=== PATIENT | male | born 1965 | race Two or more races ===

== ENCOUNTER 2019-01-24 17:21 | Emergency (ER) | payer MEDICAID ==
[~2019-01-24] VITALS: Ht 177.8 cm; Wt 116.0 kg
[2019-01-24 18:00] LABS: BASOPHILS # (AUTO) 0.1 X10'3 (0-0.2); BASOPHILS % (AUTO) 1.3 % (0-1); EOSINOPHILS # (AUTO) 0.5 X10'3 (0-0.9); EOSINOPHILS % (AUTO) 7.6 % (0-6); HEMATOCRIT 38.5 % (42.0-52.0); HEMOGLOBIN 13.4 g/dl (14.0-17.9); LYMPHOCYTES # (AUTO) 2.3 X10'3 (1.1-4.8); LYMPHOCYTES % (AUTO) 36.8 % (21-51); MEAN CORPUSCULAR HEMOGLOBIN 32.2 PG (27.0-31.0); MEAN CORPUSCULAR HGB CONC 34.8 g/dL (33.0-36.5); MEAN CORPUSCULAR VOLUME 92.7 FL (78-98); MEAN PLATELET VOLUME 7.7 FL (7.4-10.4); MONOCYTES # (AUTO) 0.6 X10'3 (0-0.9); MONOCYTES % (AUTO) 9.1 % (2-12); NEUTROPHILS # (AUTO) 2.8 X10'3 (1.8-7.7); NEUTROPHILS % (AUTO) 45.2 % (42-75); PLATELET COUNT 248 X10'3 (140-440); RED BLOOD COUNT 4.16 X10'6 (4.70-6.10); RED CELL DISTRIBUTION WIDTH 12.9 % (11.5-14.5); WHITE BLOOD COUNT 6.2 X10'3 (4.5-11.0)
[2019-01-24 18:11] LABS: ALANINE AMINOTRANSFERASE 30 U/L (12-78); ALBUMIN 3.7 G/DL (3.4-5.0); ALBUMIN/GLOBULIN RATIO 1.1 (1.1-1.5); ALKALINE PHOSPHATASE 94 IU/L (46-116); ANION GAP 6 (8-16); ASPARTATE AMINO TRANSFERASE 20 U/L (10-37); BILIRUBIN,TOTAL 0.3 MG/DL (0.1-1.0); BLOOD UREA NITROGEN 18 MG/DL (7-18); BUN/CREATININE RATIO 19.6 (5.4-32.0); CALCIUM 8.6 MG/DL (8.5-10.1); CHLORIDE 107 MMOL/L (99-107); CREATININE 0.92 MG/DL (0.60-1.10); GLUCOSE 108 MG/DL (70-104); POTASSIUM 4.1 MMOL/L (3.5-5.1); SODIUM 140 MMOL/L (135-145); TOTAL CARBON DIOXIDE 26.8 MMOL/L (24-32); TOTAL PROTEIN 7.2 G/DL (6.4-8.2); eGFR 85 ML/MIN
--- NOTE | 2019-01-24 18:11 | NUR ---
Pt ambulatory to the restroom to attempt to provide a urine specimen.
[2019-01-24 18:27] LABS: CLARITY,URINE CLEAR (Clear); COLOR,URINE YELLOW (Yellow); GLUCOSE, URINE NEGATIVE (Neg); KETONES,URINE NEGATIVE (Neg); LEUKOCYTE ESTERASE ,URINE NEGATIVE (Neg); NITRITES, URINE NEGATIVE (Neg); OCCULT BLOOD,URINE NEGATIVE (Neg); PROTEIN,URINE NEGATIVE (Neg); UROBILINOGEN,URINE 0.2 E.U/dL (0.2-1.0)
[2019-01-24 18:28] LABS: UA COLLECTION TYPE CLN CATCH MIDSTREAM
[2019-01-24 19:23] VITALS: BP 139/92
[2019-01-28] MEDS ORDERED: NO HOME MEDS (15:51)
== END 2019-01-24 19:26 | disposition home or self-care (01) ==
LOC: ER 17:21
DX: K40.90 Unilateral inguinal hernia, without obstruction or gangrene, not specified as recurrent (principal); Z98.890 Other specified postprocedural states
CPT/HCPCS: 36415; 80053; 81003; 85025; 85610; 99283

== ENCOUNTER 2019-01-29 07:02 | Day surgery (SDC) | payer MEDICAID ==
[2019-01-28 17:03] LABS: BASOPHILS # (AUTO) 0.1 X10'3 (0-0.2); BASOPHILS % (AUTO) 1.2 % (0-1); EOSINOPHILS # (AUTO) 0.4 X10'3 (0-0.9); EOSINOPHILS % (AUTO) 5.3 % (0-6); LYMPHOCYTES # (AUTO) 2.1 X10'3 (1.1-4.8); LYMPHOCYTES % (AUTO) 30.9 % (21-51); MEAN CORPUSCULAR HEMOGLOBIN 32.2 PG (27.0-31.0); MEAN CORPUSCULAR HGB CONC 34.2 g/dL (33.0-36.5); MEAN CORPUSCULAR VOLUME 94.1 FL (78-98); MEAN PLATELET VOLUME 8.2 FL (7.4-10.4); MONOCYTES # (AUTO) 0.6 X10'3 (0-0.9); MONOCYTES % (AUTO) 8.4 % (2-12); NEUTROPHILS # (AUTO) 3.7 X10'3 (1.8-7.7); NEUTROPHILS % (AUTO) 54.2 % (42-75); PRE OP HEMATOCRIT 40.9 % (42.0-52.0); PRE OP PLATELET COUNT 259 X10'3 (140-440); RED BLOOD COUNT 4.35 X10'6 (4.70-6.10)
[2019-01-28 17:25] LABS: ALBUMIN 3.8 G/DL (3.4-5.0); ALBUMIN/GLOBULIN RATIO 1.1 (1.1-1.5); ALKALINE PHOSPHATASE 96 IU/L (46-116); BLOOD UREA NITROGEN 23 MG/DL (7-18); BUN/CREATININE RATIO 22.8 (5.4-32.0); CALCIUM 9.1 MG/DL (8.5-10.1); CHLORIDE 108 MMOL/L (99-107); CREATININE 1.01 MG/DL (0.60-1.10); PRE OP ALT 39 U/L (30-65); PRE OP ANION GAP 11 (8-16); PRE OP AST 31 U/L (10-37); PRE OP BILIRUB, TOTAL 0.3 MG/DL (0.0-1.0); PRE OP GLUCOSE 110 MG/DL (70-104); PRE OP POTASSIUM 4.2 MMOL/L (3.4-5.1); PRE OP SODIUM 144 MMOL/L (135-145); TOTAL CARBON DIOXIDE 25.4 MMOL/L (24-32); TOTAL PROTEIN 7.4 G/DL (6.4-8.2); eGFR 77 ML/MIN
[~2019-01-29] VITALS: Ht 177.8 cm; Wt 116.1 kg
[2019-01-29] VITALS (10 sets, daily range): BP systolic 143–156; BP diastolic 81–97
[~2019-01-29 07:02] MED LIST: BUPIVAcaine/PF 2.5 mg/ml (0.25%) 30ml vial ONE; LIDOcaine 1% 30ml preserv. free vial ONE; NO HOME MEDS
[2019-01-29] MEDS ORDERED: ringers solution, lacted 1,000 ML IV SCH ×2 (07:05→08:00)
[2019-01-29] MEDS ORDERED: famotidine 20mg tablet PO ONE (07:05)
[2019-01-29] MEDS ORDERED: cefazolin/dext.iso 2gm/50ml 50 ML IV ONE (07:05)
[2019-01-29] MEDS ORDERED: sevoflurane 250ml liquid IH ONE (07:25)
[2019-01-29] MEDS ORDERED: fentaNYL /PF 50mcg/ml 5ml ampule ONE (07:34)
[2019-01-29] MEDS ORDERED: midazolam 2 mg/2 ml injection ONE (07:34)
[2019-01-29] MEDS ORDERED: rocuronium 10mg/ml inj IV ONE ×2 (07:39→07:48)
[2019-01-29] MEDS ORDERED: LIDOcaine 2% (20mg/ml) 5ml vial ONE (07:48)
[2019-01-29] MEDS ORDERED: propofol inj 20 ML IV ONE (07:49)
[2019-01-29] MEDS ORDERED: meperidine/PF 25mg/ml syringe IV PRN ×3 (08:00)
[2019-01-29] MEDS ORDERED: ondansetron/PF 4mg/2ml inj IV PRN (08:00)
[2019-01-29] MEDS ORDERED: morphine 4 MG/ML inj SYRINge IV PRN ×2 (08:00)
[2019-01-29] MEDS ORDERED: proCHLORperazine 10 MG/2 ml inj IV PRN (08:00)
[2019-01-29] MEDS ORDERED: ketorolac trometh. 30mg/ml inj. ONE (08:56)
[2019-01-29] MEDS ORDERED: ondansetron/PF 4mg/2ml inj ONE (08:56)
[2019-01-29] MEDS ORDERED: dexamethasone sod phosphate 4mg/ml inj. ONE (08:56)
--- NOTE | 2019-01-29 09:10 | NUR ---
Received from OR via BED , accompanied by Anesthesiologist DR GROSS and report given by Anesthesiolgist. PATIENT WAKING UP, DENIES PAIN, V/S WNL, NEUROVASCULAR CHECKS INTACT, 20G PIV LUE, SCD ON, 3 BANDAIDS TO LAP SIGHTS OF ABDOMEN CDI.
--- NOTE | 2019-01-29 10:30 | NUR ---
PATIENT A&OX4, DENIES PAIN, V/S WNL, NEUROVASCULAR CHECKS INTACT, 20G PIV LUE D/C, SCD OFF, 4 BANDAIDS TO LAP SIGHTS OF ABDOMEN CDI.. I HAVE REVIEWED D/C INSTRUCTIONS WITH PATIENT AND FAMILY HAVE VERBALIZED UNDERSTANDING.PATIENT WAS D/C HOME WITH ALL BELONGINGS AND FAMILY GAVE TRANSPORT HOME.
== END 2019-01-29 10:30 | disposition home or self-care (01) ==
LOC: PAS 07:02
PROVIDERS: ATTEND Surgery
DX: K40.30 Unilateral inguinal hernia, with obstruction, without gangrene, not specified as recurrent (principal); I10 Essential (primary) hypertension; E66.9 Obesity, unspecified; Z68.36 Body mass index [BMI] 36.0-36.9, adult; Z79.899 Other long term (current) drug therapy
CPT/HCPCS: 36415; 49650; 80053; 82948; 85025; 93005; C1781; J1100; J1885; J2001; J2250; J2405; J2704; J3010; J3490; J7120; S2900; A4215; A4618

== ENCOUNTER 2019-06-20 08:09 | Day surgery (SDC) | payer MEDICAID ==
[2019-06-20] VITALS (13 sets, daily range): BP systolic 128–170; BP diastolic 76–115
[~2019-06-20] VITALS: Ht 177.8 cm; Wt 118.0 kg
[~2019-06-20 08:09] MED LIST changes: -BUPIVAcaine/PF 2.5 mg/ml (0.25%) 30ml vial ONE; -LIDOcaine 1% 30ml preserv. free vial ONE; +cefazolin/dext.iso 2gm/50ml 50 ML IV ONE; +famotidine 20mg tablet PO ONE; +ringers solution, lacted 1,000 ML IV SCH
[2019-06-20] MEDS ORDERED: proCHLORperazine 10 MG/2 ml inj IV PRN (08:10)
[2019-06-20] MEDS ORDERED: meperidine/PF 25mg/ml syringe IV PRN ×3 (08:10)
[2019-06-20] MEDS ORDERED: morphine 4 MG/ML inj SYRINge IV PRN (08:10)
[2019-06-20] MEDS ORDERED: ondansetron/PF 4mg/2ml inj IV PRN (08:10)
[2019-06-20] MEDS ORDERED: morphine 2 MG/ML inj. syringe IV PRN (08:10)
[2019-06-20 09:30] LABS: BASOPHILS # (AUTO) 0.1 X10'3 (0-0.2); BASOPHILS % (AUTO) 1.1 % (0-1); EOSINOPHILS # (AUTO) 0.3 X10'3 (0-0.9); EOSINOPHILS % (AUTO) 5.3 % (0-6); LYMPHOCYTES # (AUTO) 1.8 X10'3 (1.1-4.8); LYMPHOCYTES % (AUTO) 29.7 % (21-51); MEAN CORPUSCULAR HEMOGLOBIN 31.2 PG (27.0-31.0); MEAN CORPUSCULAR VOLUME 91.8 FL (78-98); MEAN PLATELET VOLUME 8.3 FL (7.4-10.4); MONOCYTES # (AUTO) 0.6 X10'3 (0-0.9); MONOCYTES % (AUTO) 9.7 % (2-12); NEUTROPHILS # (AUTO) 3.4 X10'3 (1.8-7.7); NEUTROPHILS % (AUTO) 54.2 % (42-75); PRE OP HEMATOCRIT 41.3 % (42.0-52.0); PRE OP PLATELET COUNT 217 X10'3 (140-440); RED CELL DISTRIBUTION WIDTH 12.7 % (11.5-14.5)
[2019-06-20 09:37] LABS: ALBUMIN 3.8 G/DL (3.4-5.0); ALBUMIN/GLOBULIN RATIO 1.2 (1.1-1.5); ALKALINE PHOSPHATASE 98 IU/L (46-116); BLOOD UREA NITROGEN 13 MG/DL (7-18); BUN/CREATININE RATIO 13.7 (5.4-32.0); CALCIUM 8.4 MG/DL (8.5-10.1); CHLORIDE 106 MMOL/L (99-107); CREATININE 0.95 MG/DL (0.60-1.10); PRE OP ALT 32 U/L (30-65); PRE OP ANION GAP 5 (8-16); PRE OP AST 20 U/L (10-37); PRE OP BILIRUB, TOTAL 0.4 MG/DL (0.0-1.0); PRE OP GLUCOSE 98 MG/DL (70-104); PRE OP POTASSIUM 4.7 MMOL/L (3.4-5.1); PRE OP SODIUM 139 MMOL/L (135-145); TOTAL CARBON DIOXIDE 27.8 MMOL/L (24-32); eGFR 82 ML/MIN
[2019-06-20] MEDS ORDERED: LIDOcaine 1% 30ml preserv. free vial ONE (10:33)
[2019-06-20] MEDS ORDERED: BUPIVAcaine/PF 2.5 mg/ml (0.25%) 30ml vial ONE (10:33)
[2019-06-20] MEDS ORDERED: fentaNYL /PF 50mcg/ml 5ml ampule ONE (10:47)
[2019-06-20] MEDS ORDERED: propofol inj 20 ML IV ONE (10:47)
[2019-06-20] MEDS ORDERED: midazolam 2 mg/2 ml injection ONE (10:47)
[2019-06-20] MEDS ORDERED: LIDOcaine 2% (20mg/ml) 5ml vial ONE (10:47)
[2019-06-20] MEDS ORDERED: sevoflurane 250ml liquid IH ONE (11:15)
[2019-06-20] MEDS ORDERED: acetaminophen 1000 MG/100ml vial IV ONE (11:15)
[2019-06-20] MEDS ORDERED: rocuronium 10mg/ml inj IV ONE (11:21)
[2019-06-20] MEDS ORDERED: ondansetron/PF 4mg/2ml inj ONE (11:31)
[2019-06-20] MEDS ORDERED: dexamethasone sod phosphate 4mg/ml inj. ONE (11:31)
--- NOTE | 2019-06-20 13:38 | NUR ---
Received from OR via [facility] , accompanied by Anesthesiologist DR SHAY and report given by Anesthesiolgist. VVS. ORAL AIRWAY PRESENT. RESP EVEN AND UNLABORED. BANDAIDS TO ABD CDI. ABD SORT AND NONTENDER. IV PATENT #20 LEFT WRIST WITH LR AT 100MLS. Addendum: 06/20/19 at 1348 by Lindsey Saldana RN Amended: Links added.
--- NOTE | 2019-06-20 13:50 | NUR ---
PT AWAKENING, ABLE TO LIFT HEAD OFF OF GURNEY. ORAL AIRWAY REMOVED. VSS
[2019-06-20] MEDS ORDERED: oxyCODONE/APAP 5-325mg tablet PO PRN ×2 (14:20)
--- NOTE | 2019-06-20 14:28 | NUR ---
HYPERTENSIVE. SEE VS SPREADSHEET. SPOKE WITH DR SHAY - ANTIHYPERTENSIVE ORDERED. SEE EMR.
[2019-06-20] MEDS: enalaprilat dihydrate 2.5mg/2ml vial IV SCH ×2 (14:45→14:59)
--- NOTE | 2019-06-20 15:38 | NUR ---
PATIENT A&OX4, DENIES PAIN, VSS-BP AT PRE-OP LEVEL, CSM INTACT, 20G PIV TO LUE D/C WITH CANNULA INTACT, BANDAIDS TO ABDOMEN CDI. VOIDE WITHOUT DIFFICULTY. REVIEWED D/C INSTRUCTIONS WITH PATIENT AND WHO VERBALIZE UNDERSTANDING. TRANSPORT VIA WC TO [facility] WITH WAITING. Addendum: 06/20/19 at 1552 by Lindsey Saldana RN Amended: Links added.
== END 2019-06-20 15:38 | disposition home or self-care (01) ==
LOC: PAS 08:09
PROVIDERS: ATTEND Surgery
DX: K40.91 Unilateral inguinal hernia, without obstruction or gangrene, recurrent (principal); I10 Essential (primary) hypertension; E66.9 Obesity, unspecified; Z68.37 Body mass index [BMI] 37.0-37.9, adult; Z98.890 Other specified postprocedural states; Z79.899 Other long term (current) drug therapy
CPT/HCPCS: 36415; 49651; 80053; 82948; 85025; C1781; J0131; J1100; J2001; J2250; J2405; J2704; J3010; J3490; J7120; S2900; A4215; A4618

== ENCOUNTER 2021-12-10 16:12 | Emergency (ER) | payer MEDICAID ==
[~2021-12-10 16:12] MED LIST changes: -cefazolin/dext.iso 2gm/50ml 50 ML IV ONE; -famotidine 20mg tablet PO ONE; -ringers solution, lacted 1,000 ML IV SCH
[2021-12-11] MEDS ORDERED: MELO-102 PO (15:33)
[2021-12-11] MEDS ORDERED: OXYC-658 PO (15:33)
[2021-12-12] MEDS ORDERED: OXYC-658 PO (14:38)
[2021-12-12] MEDS ORDERED: MELO-102 PO (14:38)
== END 2021-12-10 18:41 | disposition left against medical advice (07) ==
LOC: ER 16:13
DX: M54.2 Cervicalgia (principal); Z53.21 Procedure and treatment not carried out due to patient leaving prior to being seen by health care provider

== ENCOUNTER 2021-12-11 10:47 | Emergency (ER) | payer MEDICAID ==
[~2021-12-11] VITALS: Ht 177.8 cm; Wt 11.8 kg
[2021-12-11 11:19] VITALS: BP 146/90
[2021-12-11] MEDS ORDERED: oxyCODONE IR 5mg (immed. release) tablet PO ONE (13:00)
[2021-12-11] MEDS ORDERED: ketorolac trometh. 30mg/ml inj. IM ONE (13:00)
[2021-12-11] MEDS ORDERED: OXYC-658 PO (15:33)
[2021-12-11] MEDS ORDERED: MELO-102 PO (15:33)
[2021-12-12] MEDS ORDERED: MELO-102 PO (14:38)
[2021-12-12] MEDS ORDERED: OXYC-658 PO (14:38)
== END 2021-12-11 16:14 | disposition home or self-care (01) ==
LOC: ER 10:47
DX: G89.29 Other chronic pain (principal); M54.9 Dorsalgia, unspecified; Z79.899 Other long term (current) drug therapy
CPT/HCPCS: 72100; 73521; 96372; 99284; J1885

== ENCOUNTER 2023-04-19 15:40 | Emergency (ER) | payer MEDICAID ==
[~2023-04-19] VITALS: Ht 175.3 cm; Wt 118.2 kg
[~2023-04-19 15:40] MED LIST changes: +MELO-102 PO; +OXYC-658 PO
[2023-04-19 15:51] VITALS: BP 210/123; PULSE 64; RESP 18; TEMP 97.8; O2SAT 98
[2023-04-19] MEDS ORDERED: OXYC-145 PO (16:51)
[2023-04-19] MEDS ORDERED: IBUP-1984 PO (16:51)
== END 2023-04-19 17:35 | disposition home or self-care (01) ==
LOC: ER 15:40
DX: S93.492A Sprain of other ligament of left ankle, initial encounter (principal); X58.XXXA Exposure to other specified factors, initial encounter; Y93.89 Activity, other specified; Y92.89 Other specified places as the place of occurrence of the external cause; Y99.8 Other external cause status
CPT/HCPCS: 73610; 73630; 99284; L4360

== ENCOUNTER 2023-05-10 05:51 | Emergency (ER) | payer MEDICAID ==
[~2023-05-10] VITALS: Ht 175.3 cm; Wt 100.0 kg
[~2023-05-10 05:51] MED LIST changes: +OXYC-145 PO
[2023-05-10 05:57] VITALS: TEMP 98.3
[2023-05-10] MEDS ORDERED: ipratropium/albuterol 3ml nebule NEB ONE (06:15)
[2023-05-10 06:45] VITALS: PULSE 63; RESP 16; O2SAT 95
[2023-05-10 06:50] VITALS: PULSE 68; O2SAT 96
[2023-05-10 07:20] LABS: BASOPHILS # (AUTO) 0.1 X10'3 (0-0.2); BASOPHILS % (AUTO) 1.3 % (0-1); EOSINOPHILS # (AUTO) 0.4 X10'3 (0-0.9); EOSINOPHILS % (AUTO) 4.5 % (0-6); HEMATOCRIT 40.2 % (42.0-52.0); HEMOGLOBIN 13.8 g/dl (14.0-17.9); LYMPHOCYTES # (AUTO) 1.8 X10'3 (1.1-4.8); LYMPHOCYTES % (AUTO) 22.7 % (21-51); MEAN CORPUSCULAR HEMOGLOBIN 32.2 PG (27.0-31.0); MEAN CORPUSCULAR HGB CONC 34.4 g/dL (33.0-36.5); MEAN CORPUSCULAR VOLUME 93.8 FL (78-98); MEAN PLATELET VOLUME 8.5 FL (7.4-10.4); MONOCYTES # (AUTO) 0.7 X10'3 (0-0.9); MONOCYTES % (AUTO) 9.1 % (2-12); NEUTROPHILS # (AUTO) 5.1 X10'3 (1.8-7.7); NEUTROPHILS % (AUTO) 62.4 % (42-75); PLATELET COUNT 237 X10'3 (140-440); RED BLOOD COUNT 4.29 X10'6 (4.70-6.10); RED CELL DISTRIBUTION WIDTH 12.6 % (11.5-14.5); WHITE BLOOD COUNT 8.1 X10'3 (4.5-11.0)
[2023-05-10 07:26] LABS: ALANINE AMINOTRANSFERASE 32 U/L (12-78); ALBUMIN 3.8 G/DL (3.4-5.0); ALBUMIN/GLOBULIN RATIO 1.1 (1.1-1.5); ALKALINE PHOSPHATASE 107 IU/L (46-116); ANION GAP 10 (8-16); ASPARTATE AMINO TRANSFERASE 21 U/L (10-37); BILIRUBIN,TOTAL 0.3 MG/DL (0.1-1.0); BLOOD UREA NITROGEN 13 MG/DL (7-18); CALCIUM 9.2 MG/DL (8.5-10.1); CHLORIDE 101 MMOL/L (99-107); CREATININE 0.93 MG/DL (0.60-1.10); GLUCOSE 143 MG/DL (70-104); POTASSIUM 4.5 MMOL/L (3.5-5.1); SODIUM 136 MMOL/L (135-145); TOTAL CARBON DIOXIDE 25.1 MMOL/L (24-32); TOTAL PROTEIN 7.2 G/DL (6.4-8.2); eCRCL 86 ML/MIN; eGFR 83 ML/MIN
[2023-05-10 07:34] LABS: PRO BRAIN NATRIURETIC PEPTIDE 155 PG/ML (0-125)
[2023-05-10] MEDS ORDERED: azithromycin 250mg tablet PO SCH (08:00)
[2023-05-10] MEDS ORDERED: magnesium 2GM in 50ml NS 50 ML IV ONE (08:40)
[2023-05-10] MEDS ORDERED: dexamethasone sod phosphate 10mg/ml inj IV STA (08:40)
[2023-05-10] MEDS ORDERED: albuterol 2.5 MG/3 ML nebule CONTNEB PRN (08:45)
[2023-05-10 09:28] VITALS: PULSE 61; RESP 16; O2SAT 96
[2023-05-10 10:29] VITALS: PULSE 82; RESP 20; O2SAT 94
[2023-05-10] MEDS ORDERED: ALBU6.7H14 INH (11:06)
[2023-05-10] MEDS ORDERED: DEC4T PO (11:08)
[2023-05-10] MEDS ORDERED: AZIT-103 PO (11:09)
[2023-05-10] MEDS ORDERED: dexamethasone 4mg tablet PO SCH (11:12)
[2023-05-10 11:30] VITALS: BP 147/78; PULSE 79; RESP 18; O2SAT 94
[2023-05-10] MEDS ORDERED: albuterol 2.5 MG/3 ML nebule NEB SCH (12:00)
== END 2023-05-10 11:34 | disposition home or self-care (01) ==
LOC: ER 05:52
DX: J45.909 Unspecified asthma, uncomplicated (principal); F17.200 Nicotine dependence, unspecified, uncomplicated
CPT/HCPCS: 36415; 71045; 80053; 83880; 84484; 85025; 93005; 94640; 94644; 96365; 96375; 99285; J1100; J3475; 94760; A7015

== ENCOUNTER 2023-05-10 22:08 | Emergency (ER) | payer MEDICAID ==
[~2023-05-10] VITALS: Ht 175.3 cm; Wt 175.0 kg
[~2023-05-10 22:08] MED LIST changes: +ALBU6.7H14 INH; +AZIT-103 PO; +DEC4T PO
[2023-05-10 22:30] LABS: BASOPHILS # (AUTO) 0.1 X10'3 (0-0.2); BASOPHILS % (AUTO) 0.6 % (0-1); EOSINOPHILS % (AUTO) 0 % (0-6); HEMATOCRIT 41.3 % (42.0-52.0); LYMPHOCYTES # (AUTO) 0.9 X10'3 (1.1-4.8); LYMPHOCYTES % (AUTO) 10.4 % (21-51); MEAN CORPUSCULAR HEMOGLOBIN 31.9 PG (27.0-31.0); MEAN CORPUSCULAR HGB CONC 33.9 g/dL (33.0-36.5); MEAN CORPUSCULAR VOLUME 94.3 FL (78-98); MONOCYTES # (AUTO) 0.2 X10'3 (0-0.9); MONOCYTES % (AUTO) 2.2 % (2-12); NEUTROPHILS # (AUTO) 7.7 X10'3 (1.8-7.7); NEUTROPHILS % (AUTO) 86.8 % (42-75); PLATELET COUNT 252 X10'3 (140-440); RED BLOOD COUNT 4.38 X10'6 (4.70-6.10); RED CELL DISTRIBUTION WIDTH 12.9 % (11.5-14.5); WHITE BLOOD COUNT 8.9 X10'3 (4.5-11.0)
[2023-05-10 22:52] LABS: ALANINE AMINOTRANSFERASE 33 U/L (12-78); ALBUMIN/GLOBULIN RATIO 1.1 (1.1-1.5); ALKALINE PHOSPHATASE 109 IU/L (46-116); ANION GAP 14 (8-16); ASPARTATE AMINO TRANSFERASE 14 U/L (10-37); BILIRUBIN,TOTAL 0.4 MG/DL (0.1-1.0); BLOOD UREA NITROGEN 17 MG/DL (7-18); BUN/CREATININE RATIO 13.6 (10.0-20.0); CALCIUM 9.2 MG/DL (8.5-10.1); CHLORIDE 99 MMOL/L (99-107); CREATININE 1.25 MG/DL (0.60-1.10); GLUCOSE 198 MG/DL (70-104); POTASSIUM 4.6 MMOL/L (3.5-5.1); SODIUM 136 MMOL/L (135-145); TOTAL CARBON DIOXIDE 22.6 MMOL/L (24-32); TOTAL PROTEIN 7.7 G/DL (6.4-8.2); eCRCL 64 ML/MIN; eGFR 59 ML/MIN
[2023-05-10 22:56] LABS: PRO BRAIN NATRIURETIC PEPTIDE 286 PG/ML (0-125)
[2023-05-11 05:22] VITALS: BP 188/81; PULSE 88; RESP 18; TEMP 98.2; O2SAT 98
== END 2023-05-11 05:26 | disposition home or self-care (01) ==
LOC: ER 22:10
DX: R06.02 Shortness of breath (principal); R00.2 Palpitations; G89.29 Other chronic pain; M54.9 Dorsalgia, unspecified; Z79.899 Other long term (current) drug therapy; Z79.1 Long term (current) use of non-steroidal anti-inflammatories (NSAID)
CPT/HCPCS: 36415; 71045; 80053; 83880; 84484; 85025; 93005; 99285